=== PATIENT | female | born 1975 | race Caucasian/White ===

== ENCOUNTER 2022-08-04 11:10 | Emergency (ER) | payer MEDICARE, MEDICAID ==
[~2022-08-04] VITALS: Ht 180.3 cm; Wt 96.0 kg
[~2022-08-04 11:10] MED LIST: ALBU8.5H17 INH; LEVO125T PO; OXYC20TA55 PO
[2022-08-04 11:18] VITALS: BP 132/67
[2022-08-04] MEDS ORDERED: ketorolac trometh. 30mg/ml inj. IM ONE (16:00)
== END 2022-08-04 16:25 | disposition home or self-care (01) ==
LOC: ER 11:11
DX: M70.21 Olecranon bursitis, right elbow (principal); F17.200 Nicotine dependence, unspecified, uncomplicated; Z88.0 Allergy status to penicillin; Z88.1 Allergy status to other antibiotic agents; Z91.040 Latex allergy status; Y93.89 Activity, other specified
CPT/HCPCS: 73080; 96372; 99283; J1885; A4565; A6449